=== PATIENT | female | born 1950 | race Hispanic/Latino ===

== ENCOUNTER → 2024-12-27 | Outpatient (REF) | payer MEDICARE ==
[~2024-12-27] MED LIST: BENAZEPRIL HCL5 MG PO
== END ==
LOC: MAMMO 14:20
PROVIDERS: ATTEND Family Medicine
DX: Z12.31 Encounter for screening mammogram for malignant neoplasm of breast (principal); M85.88 Other specified disorders of bone density and structure, other site
CPT/HCPCS: 77067; 77080